=== PATIENT | male | born 1980 | race Caucasian/White ===

== ENCOUNTER → 2018-03-12 | Outpatient (CLI) | payer OTHER ==
[~2018-03-12] VITALS: Ht 167.6 cm; Wt 65.8 kg
[2018-03-12] VITALS (7 sets, daily range): BP systolic 104–151; BP diastolic 59–79; PULSE 58–153
[~2018-03-12] MED LIST: FLEXERIL10 MG PO; LORTAB 5/500 501 TAB PO; NAPROSYN500 MG PO; NO HOME MEDICATIONS; ULTRAM50 MG PO; VALIUM5 MG PO
== END ==
LOC: COL.CARD 09:48
DX: R07.9 Chest pain, unspecified (principal); F17.210 Nicotine dependence, cigarettes, uncomplicated
CPT/HCPCS: J1250

== ENCOUNTER 2018-05-20 09:43 | Outpatient (RCR) | payer OTHER | END 2018-06-13 | disposition home or self-care (01) | LOC: WSOH | DX: T75.4XXA Electrocution, initial encounter (principal); T25.021A Burn of unspecified degree of right foot, initial encounter; R07.9 Chest pain, unspecified; R42 Dizziness and giddiness; F17.210 Nicotine dependence, cigarettes, uncomplicated ==

== ENCOUNTER 2018-05-27 15:30 | Outpatient (RCR) | payer OTHER | END 2018-08-04 | disposition still patient (30) | LOC: WSST | DX: R41.3 Other amnesia (principal); T75.4XXD Electrocution, subsequent encounter; W86.8XXD Exposure to other electric current, subsequent encounter ==

== ENCOUNTER 2018-06-17 10:04 | Outpatient (RCR) | payer OTHER | END 2018-06-18 10:32 | disposition home or self-care (01) | LOC: WSOH 10:04 | DX: T25.021D Burn of unspecified degree of right foot, subsequent encounter (principal); T75.4XXD Electrocution, subsequent encounter; R07.9 Chest pain, unspecified; R42 Dizziness and giddiness; R20.0 Anesthesia of skin; F17.210 Nicotine dependence, cigarettes, uncomplicated; Z79.899 Other long term (current) drug therapy ==

== ENCOUNTER 2019-03-10 12:30 | Emergency (ER) | payer SELFPAY ==
[~2019-03-10] VITALS: Ht 167.6 cm; Wt 72.7 kg
[2019-03-10 13:05] VITALS: BP 103/68; PULSE 61; TEMP 97.5
[2019-03-10] MEDS ORDERED: DESYREL 100MG100 MG PO (13:05)
[2019-03-10] MEDS ORDERED: NORCO 325 MG-51 TAB PO (14:01)
== END 2019-03-10 14:33 | disposition home or self-care (01) ==
LOC: COL.ER 12:30
DX: S62.306A Unspecified fracture of fifth metacarpal bone, right hand, initial encounter for closed fracture (principal); K50.90 Crohn's disease, unspecified, without complications; F17.210 Nicotine dependence, cigarettes, uncomplicated; W22.8XXA Striking against or struck by other objects, initial encounter
CPT/HCPCS: Q4021

== ENCOUNTER 2019-06-04 15:21 | Emergency (ER) | payer SELFPAY ==
[~2019-06-04] VITALS: Ht 167.6 cm; Wt 71.8 kg
[~2019-06-04 15:21] MED LIST changes: +DESYREL 100MG100 MG PO; +NORCO 325 MG-51 TAB PO
[2019-06-04 15:30] VITALS: BP 121/83; TEMP 98.3
[2019-06-04] MEDS ORDERED: ZITHROMAX Z PA250 MG PO (15:50)
[2019-06-04] MEDS ORDERED: PREDNISONE20 MG PO (15:50)
[2019-06-04 16:40] VITALS: PULSE 94
== END 2019-06-04 16:40 | disposition home or self-care (01) ==
LOC: COL.ER 15:21
DX: J20.9 Acute bronchitis, unspecified (principal); F17.210 Nicotine dependence, cigarettes, uncomplicated; K50.90 Crohn's disease, unspecified, without complications

== ENCOUNTER 2019-07-06 01:59 | Emergency (ER) | payer SELFPAY ==
[~2019-07-06] VITALS: Ht 167.6 cm; Wt 72.7 kg
[~2019-07-06 01:59] MED LIST changes: +PREDNISONE20 MG PO; +ZITHROMAX Z PA250 MG PO
[2019-07-06 02:19] VITALS: TEMP 98
[2019-07-06 02:34] LABS: BASO # 0.1 (0.0-0.2); BASO % 0.6 % (0.0-2.0); EOS # 0.6 (0.0-0.7); EOS % 7.8 % (0-4.0); GRAN # 4.4 (1.4-6.5); GRAN % 56.6 % (42.2-75.2); HEMATOCRIT 43.1 % (42.0-52.0); LYMPH # 1.7 (1.2-3.4); LYMPH % 21.7 % (20.0-51.0); MEAN CELL VOLUME 90 fl (80.0-100.0); MEAN CORPUSCULAR HEMOGLOBIN 31 pg (27.0-31.0); MEAN CORPUSCULAR HGB CONC 35 g/dl (33.0-37.0); MEAN PLATELET VOLUME 9.5 fl (7.4-10.4); MONO % 12.9 % (1.7-9.3); PLATELET COUNT 304 K/mm3 (130-400); RED BLOOD COUNT 4.77 M/mm3 (4.20-5.60); REDCELL DISTRIBUTION WIDTH-CV 12.7 % (11.5-14.5)
[2019-07-06 02:42] LABS: PROTHROMBIN TIME 11.3 SECONDS (9.7-12.8)
[2019-07-06 02:48] LABS: ALANINE AMINOTRANSFERASE 32 U/L (21-72); ALBUMIN 3.6 gm/dL (3.5-5.0); ALKALINE PHOSPHATASE 46 U/L (50-136); ANION GAP 8 mmol/L (7-16); AST,SGOT 24 U/L (15-37); BILIRUBIN,TOTAL 0.2 mg/dL (0.0-1.0); BLOOD UREA NITROGEN 9 mg/dL (9-20); CARBON DIOXIDE 23 mmol/L (22-30); CHLORIDE 108 mmol/L (98-107); CREATININE, serum 1.05 (0.66-1.25); GLUCOSE 89 mg/dL (74-106); SODIUM 139 mmol/L (137-145); TOTAL PROTEIN 6.3 gm/dL (6.4-8.2)
[2019-07-06 03:09] LABS: POTASSIUM 2.7 mmol/L (3.4-5.0); TROPONIN-I < 0.012 ng/mL (0.000-0.035)
[2019-07-06 05:00] VITALS: BP 100/78
[2019-07-06 05:15] VITALS: PULSE 74
== END 2019-07-06 05:28 | disposition home or self-care (01) ==
LOC: COL.ER 01:59
PROVIDERS: Emergency Medicine
DX: R07.89 Other chest pain (principal); E87.6 Hypokalemia; F17.210 Nicotine dependence, cigarettes, uncomplicated
CPT/HCPCS: J3480

== ENCOUNTER 2022-06-05 13:09 | Observation (INO) | payer SELFPAY ==
[~2022-06-05] VITALS: Ht 167.6 cm; Wt 63.6 kg
[~2022-06-05 13:09] MED LIST changes: +CIPRO750 MG PO; +ZOFRAN ODT4 MG PO
--- NOTE | 2022-06-05 14:00 | NUR ---
Patient admitted to unit alert and oriented x4. Patient reports of pain at left lower quadrant. Patient rated pain level 8/10. Patient denies feeling n/v. Patient's last bowel movement 06/04/22. Lung CTA. Bowel sound active. Patient oriented to room and the use of call rhodes. Family member at the bedside.
[2022-06-05] MEDS ORDERED: MOTRIN 800800 MG/TAB PO (14:22)
[2022-06-05] MEDS ORDERED: TYLENOL 500MG500 MG PO ×2 (14:23→14:24)
[2022-06-05] MEDS ORDERED: NEURONTIN100 MG/CAP PO (14:25)
[2022-06-05] MEDS ORDERED: DESYREL 50MG50 MG PO (14:26)
[2022-06-05] MEDS ORDERED: CYMBALTA 20MG20 MG PO (14:27)
[2022-06-05] MEDS ORDERED: PREVACID 15MG15 M1 PO (14:29)
[2022-06-05 17:06] VITALS: BP 107/63; PULSE 58; TEMP 97.7
--- NOTE | 2022-06-05 18:28 | NUR ---
Patient laying bed watching TV . Patient states he's feeling a little bit comfortable. Patient rated pain level 5/10. IVF infusing. Patient ate 80% of meal. Family at the bed side.
--- NOTE | 2022-06-05 19:17 | NUR ---
Patient sleeping comfortably, and IMAGERY INTELLIGENCE pump not initiated.
[2022-06-05 20:09] VITALS: BP 107/75; PULSE 62; TEMP 98.4
[2022-06-06] VITALS (13 sets, daily range): BP systolic 96–136; BP diastolic 57–77; PULSE 55–78; TEMP 97.4–99.1
--- NOTE | 2022-06-06 05:30 | NUR ---
THE PATIENT HAS HAD UNEVENTFUL NIGHT. PAIN ASSOCIATED WITH KIDNEY STONE WAS MINIMAL. PATIENT WAS ABLE TO SLEEP THROUGH THE DISCOMFORT. STAYED AT BEDSIDE THROUGH THE NIGHT. NO OTHER CONCERNS.
--- NOTE | 2022-06-06 13:38 | NUR ---
DANY met with the patient and his , Nova ([phone]), to discuss discharge plan. The patient lives in [place] with his . He reports independence with ADLs and has a cane available. The patient does not have a PCP. He confirms that he is self pay. DANY discussed [facility] in . The patient states that he has gone there in the past, but did not like it. His states that she is not impressed with it either. DANY informed them of the [facility] in [place], but how it can take awhile to get in. DANY also informed them of [facility]. He receives his medications from [facility] in . The patient's states that they have not had any difficulty affording his meds, because the meds he needs falls under Workers Comp. She states that if he needs anything new from this hospital stay, they may need assistance. Nova provided DANY with the patient's completed financial assistance application. DANY emailed the application to financial counseling. The patient plans to return home with his upon discharge. *Discharge plan: home with *
--- NOTE | 2022-06-06 15:15 | NUR ---
PATIENT GOING DOWN TO OR VIA BED. BLANK CONSENT ON CHART, UROLOGY TO MEET/EXPLAIN PROCEDURE IN PRE-SURG HOLDING. AT BEDSIDE. IV FLUIDS TO GRAVITY. PATIENT NOW OFF FLOOR.
[2022-06-06] MEDS ORDERED: PYRIDIUM 100MG100 MG PO (15:32)
[2022-06-06] MEDS ORDERED: NORCO 325 MG-51 TAB PO (15:33)
--- NOTE | 2022-06-06 17:30 | NUR ---
PATIENT BACK IN ROOM POST OP. DROWSY AND C/O LOTS OF PAIN. GAVE PRN ROXICODONE. PACU ALSO REPORTED GIVING DILAUDID & FENTANYL. REPORTS THE UROLOGIST SAID THEY WERE ONLY ABLE TO GET 80% OF STONES AND A LEFT STENT WAS PLACED. PATIENT WILL HAVE TO COME BACK IN 2 WEEKS. PATIENT IS PALE AND NOT FEELING LIKE EATING AT ALL. PATIENT DID VOID UPON ARRIVAL TO ROOM, BLOODY URINE NOTED. VSS. AT BEDSIDE. ORDERS TO DISCHARGE HOME LATER TONIGHT IF CRITERIA MEET.
--- NOTE | 2022-06-06 19:00 | NUR ---
PATIENT STILL C/O PAIN AFTER PO PAIN MEDS. CALLED UROLOGY, SEE NEW ORDERS.
[2022-06-07] VITALS: BP 131/73; PULSE 77; TEMP 98.2
[2022-06-07 00:12] VITALS: BP 131/73; PULSE 83; TEMP 98
[2022-06-07 04:06] VITALS: BP 94/48; PULSE 78; TEMP 98.2
--- NOTE | 2022-06-07 07:24 | NUR ---
pt requested morphine throughout this shift for severe pain with urination, urine remains bloody, stones visable in strainer. oxycodone given po @0230, refused tylenol.
[2022-06-07 08:02] VITALS: BP 117/72; PULSE 75; TEMP 97.7
--- NOTE | 2022-06-07 10:28 | NUR ---
Patient ready for discharge. Spoke to Ishaan Mendoza about patient. Okay for discharge. Spoke to Ishaan this am And reviewed his pain AZO & Levsin given with Roxicodone & tyelnol. Pain improved significantly after. Still discomfort with urination, but improved. Patient had nausea this am that was also resolved after zofran given. I called [facility] pharmacy per patient request & gave patient medication prices. We reviewed home med list & new medications & medication safety. Encouraged water intake, patient reports drinking energy drinks & mountain dew. I discouraged excessive caffine intake. Also encouraged smoking cessation. Int [place]. Urology office to call for follow up and encourgaed patient to call with any questions or concerns. Patient wheeled out with all belogings, significant other taking him home.
== END 2022-06-07 10:36 | disposition home or self-care (01) ==
LOC: SURG 13:09
PROVIDERS: ADMIT Urology
DX: N20.0 Calculus of kidney (principal); F17.210 Nicotine dependence, cigarettes, uncomplicated; K21.9 Gastro-esophageal reflux disease without esophagitis; Z79.899 Other long term (current) drug therapy
CPT/HCPCS: C1769; C2617; G0378; J0690; J1170; J2270; J2405; J2704; J3010; J7030; Q9966

== ENCOUNTER 2024-02-13 17:42 | Emergency (ER) | payer OTHER ==
[~2024-02-13] VITALS: Ht 167.6 cm; Wt 65.2 kg
[~2024-02-13 17:42] MED LIST changes: +CYMBALTA 20MG20 MG PO; +DESYREL 50MG50 MG PO; +MOTRIN 800800 MG/TAB PO; +NEURONTIN100 MG/CAP PO; +PREVACID 15MG15 M1 PO; +PYRIDIUM 100MG100 MG PO; +TYLENOL 500MG500 MG PO
[2024-02-13 17:52] VITALS: TEMP 98.4
[2024-02-13] MEDS ORDERED: diphenhydrAMINE 50 MG/ML 1 ML VIAL IV ONE (18:30)
[2024-02-13] MEDS ORDERED: NS 1,000 ML IV ONE ×2 (18:30→19:45)
[2024-02-13] MEDS ORDERED: Ketorolac 30 MG/ML VIAL IV ONE (18:30)
[2024-02-13 18:36] LABS: BASO % 0.5 % (0.0-2.0); EOS # 0.5 K/mm3 (0.0-0.7); EOS % 6.9 % (0.0-4.0); GRAN # 4.8 K/mm3 (1.4-6.5); GRAN % 62.2 % (42.2-75.2); HEMATOCRIT 42.8 % (42.0-52.0); HEMOGLOBIN 15.2 g/dl (13.5-18.0); LYMPH # 1.2 K/mm3 (1.2-3.4); LYMPH % 15.6 % (20.0-51.0); MEAN CELL VOLUME 87 fl (80.0-100.0); MEAN CORPUSCULAR HEMOGLOBIN 31 pg (27-31); MEAN CORPUSCULAR HGB CONC 36 g/dl (33.0-37.0); MEAN PLATELET VOLUME 9.8 fl (7.4-10.4); MONO # 1.1 K/mm3 (0.1-0.6); MONO % 14.4 % (1.7-9.3); PLATELET COUNT 301 K/mm3 (130-400); RED BLOOD COUNT 4.93 M/mm3 (4.20-5.60); REDCELL DISTRIBUTION WIDTH-CV 12.7 % (11.5-14.5)
[2024-02-13 19:00] LABS: ALBUMIN 3.8 g/dL (3.5-5.0); BILIRUBIN,TOTAL 0.4 mg/dL (0.2-1.2); C-REACTIVE PROTEIN 0.03 mg/dL (0.00-0.50); CALCIUM 9.4 mg/dL (8.4-10.2); CREATININE, serum 1.4 mg/dL (0.72-1.25); TOTAL PROTEIN 6.5 g/dl (6.2-8.1)
[2024-02-13 19:07] LABS: POTASSIUM 2.8 mEq/L (3.5-4.5)
[2024-02-13] MEDS ORDERED: Potassium Chloride 100 ML IV ONE (19:15)
[2024-02-13 19:33] LABS: COLLECTION METHOD CLEAN CATCH
[2024-02-13 19:40] LABS: PH 6.5 (5.0-8.5); URINE APPEARANCE TURBID (CLEAR/HAZY); URINE BLOOD 3+ (NEGATIVE); URINE COLOR YELLOW (YELLOW); URINE GLUCOSE NEGATIVE (NEGATIVE); URINE KETONE TRACE (NEGATIVE); URINE NITRATE NEGATIVE (NEGATIVE); URINE PROTEIN(semi-quant) 1+ (NEGATIVE); URINE UROBILINOGEN 0.2 E.U/dL (0.2-1.0)
[2024-02-13] MEDS ORDERED: AMBIEN 5MG TABLE5 MG PO (20:17)
[2024-02-13] MEDS ORDERED: CELEBREX 200MG200 MG PO (20:19)
[2024-02-13] MEDS ORDERED: REQUIP2 MG PO ×2 (20:23)
[2024-02-13] MEDS ORDERED: ZOCOR 20MG20 MG PO (20:24)
[2024-02-13] MEDS ORDERED: XANAX .25M0.25 MG/TA PO (20:26)
[2024-02-13] MEDS ORDERED: NATURAL IRON65 MG PO (20:27)
[2024-02-13] MEDS ORDERED: SYNTHROID0.088 MG/T PO (20:29)
[2024-02-13] MEDS ORDERED: PRINIVIL10 MG PO (20:29)
[2024-02-13] MEDS ORDERED: MAXZIDE-25MG TA1 TAB PO (20:30)
[2024-02-13] MEDS ORDERED: LASIX 20MG TABL20 MG PO (20:31)
[2024-02-13] MEDS ORDERED: KLOR-CON SPRIN10 MEQ PO (20:32)
[2024-02-13] MEDS ORDERED: K-DUR20 MEQ PO (21:15)
[2024-02-13] MEDS ORDERED: Home Ondansetron ODT 4 MG #2 ODT/PACK PO ONE (21:15)
[2024-02-13] MEDS ORDERED: ZOFRAN ODT4 MG PO (21:15)
[2024-02-13 21:58] VITALS: BP 129/84; PULSE 66
== END 2024-02-13 21:58 | disposition home or self-care (01) ==
LOC: COL.ER 17:42
PROVIDERS: Nurse Practitioner
DX: E87.6 Hypokalemia (principal); R51.9 Headache, unspecified; R10.84 Generalized abdominal pain; F17.210 Nicotine dependence, cigarettes, uncomplicated; Z91.040 Latex allergy status
CPT/HCPCS: J1200; J1885; J2765; J3480; J7030

== ENCOUNTER 2024-03-17 13:31 | Emergency (ER) | payer OTHER ==
[~2024-03-17] VITALS: Ht 167.6 cm; Wt 63.6 kg
[~2024-03-17 13:31] MED LIST changes: +AMBIEN 5MG TABLE5 MG PO; +CELEBREX 200MG200 MG PO; +K-DUR20 MEQ PO; +KLOR-CON SPRIN10 MEQ PO; +LASIX 20MG TABL20 MG PO; +MAXZIDE-25MG TA1 TAB PO; +NATURAL IRON65 MG PO; +PRINIVIL10 MG PO; +REQUIP2 MG PO; +SYNTHROID0.088 MG/T PO; +XANAX .25M0.25 MG/TA PO; +ZOCOR 20MG20 MG PO
[2024-03-17] MEDS ORDERED: Amoxicillin/Clavulanate K+ 875/125 MG TAB PO ONE (17:30)
[2024-03-17] MEDS ORDERED: AMOXICILLIN 8751 TAB PO (17:39)
[2024-03-17 17:50] VITALS: BP 126/83; PULSE 73; TEMP 98.2
== END 2024-03-17 17:50 | disposition home or self-care (01) ==
LOC: COL.ER 13:31
DX: K04.7 Periapical abscess without sinus (principal); K02.9 Dental caries, unspecified; F17.210 Nicotine dependence, cigarettes, uncomplicated; Z91.040 Latex allergy status